=== PATIENT | female | born 1955 | race Caucasian/White ===

== ENCOUNTER → 2023-05-12 07:28 | Outpatient (REF) | payer MEDICARE, SELFPAY | LOC: RAD 07:28 | PROVIDERS: ATTENDING PHYSICIAN Nurse Practitioner | DX: E01.0 Iodine-deficiency related diffuse (endemic) goiter (principal) | CPT/HCPCS: 76536 ==

== ENCOUNTER → 2023-07-23 11:30 | Outpatient (REF) | payer MEDICARE, SELFPAY | LOC: WDC 11:30 | PROVIDERS: ATTENDING PHYSICIAN Obstetrics & Gynecology; FAMILY PHYSICIAN Nurse Practitioner | DX: Z12.31 Encounter for screening mammogram for malignant neoplasm of breast (principal) | CPT/HCPCS: 77063; 77067 ==

== ENCOUNTER → 2024-09-07 08:35 | Outpatient (REF) | payer MEDICARE, SELFPAY | LOC: HWWDC 08:35 | PROVIDERS: ATTENDING PHYSICIAN Obstetrics & Gynecology; FAMILY PHYSICIAN Nurse Practitioner | DX: Z12.31 Encounter for screening mammogram for malignant neoplasm of breast (principal); M81.0 Age-related osteoporosis without current pathological fracture | CPT/HCPCS: 77063; 77067; 77080 ==